=== PATIENT | female | born 1960 | race Caucasian/White ===

== ENCOUNTER 2018-01-14 02:07 | Outpatient (CLI) | payer SELFPAY ==
[2018-01-14 11:46] LABS: HEMOGLOBIN A1C 5.9 % (4.5-6.2)
[2018-01-14 12:01] LABS: CHOL/HDL RATIO 5.17 (0.00-4.99)
== END 2018-01-14 23:59 | disposition home or self-care (01) ==
LOC: HW HEART 02:07
DX: Z00.00 Encounter for general adult medical examination without abnormal findings (principal)
CPT/HCPCS: 36415

== ENCOUNTER 2025-02-17 21:53 | Inpatient (IN) | payer MEDICARE ==
[~2025-02-17] VITALS: Ht 157.5 cm; Wt 69.3 kg
[2025-02-17 22:37] LABS: BASOPHILS # (AUTO) 0.1 X10'3 (0-0.2); BASOPHILS % (AUTO) 0.6 % (0-1); EOSINOPHILS # (AUTO) 0.5 X10'3 (0-0.9); EOSINOPHILS % (AUTO) 5.1 % (0-6); HEMATOCRIT 28.5 % (35.0-45.0); LYMPHOCYTES # (AUTO) 3.2 X10'3 (1.1-4.8); MEAN CORPUSCULAR HGB CONC 35.1 g/dL (33.0-36.5); MEAN CORPUSCULAR VOLUME 82.6 FL (78-98); MEAN PLATELET VOLUME 8.4 FL (7.4-10.4); MONOCYTES # (AUTO) 0.8 X10'3 (0-0.9); MONOCYTES % (AUTO) 8.5 % (2-12); NEUTROPHILS # (AUTO) 5.3 X10'3 (1.8-7.7); NEUTROPHILS % (AUTO) 53.8 % (42-75); PLATELET COUNT 323 X10'3 (140-440); RED BLOOD COUNT 3.45 X10'6 (4.20-5.60); RED CELL DISTRIBUTION WIDTH 14.6 % (11.5-14.5); WHITE BLOOD COUNT 9.8 X10'3 (4.5-11.0)
[2025-02-17 22:47] LABS: ALANINE AMINOTRANSFERASE 21 U/L (12-78); ALBUMIN 3.8 G/DL (3.4-5.0); ALBUMIN/GLOBULIN RATIO 1.2 (1.1-1.5); ALKALINE PHOSPHATASE 110 IU/L (46-116); ANION GAP 8 (8-16); ASPARTATE AMINO TRANSFERASE 14 U/L (10-37); BILIRUBIN,TOTAL 0.4 MG/DL (0.1-1.0); BLOOD UREA NITROGEN 17 MG/DL (7-18); BUN/CREATININE RATIO 17.5 (10.0-20.0); CALCIUM 8.9 MG/DL (8.5-10.1); CHLORIDE 98 MMOL/L (99-107); CREATININE 0.97 MG/DL (0.40-0.90); GLUCOSE 137 MG/DL (70-104); POTASSIUM 3.3 MMOL/L (3.5-5.1); SODIUM 136 MMOL/L (135-145); TOTAL CARBON DIOXIDE 29.9 MMOL/L (24-32); eCRCL 46 ML/MIN; eGFR 58 ML/MIN
[2025-02-17 22:54] LABS: PRO BRAIN NATRIURETIC PEPTIDE 88 PG/ML (0-125)
[2025-02-18] VITALS (14 sets, daily range): BP systolic 97–165; BP diastolic 60–82; PULSE 74–111; RESP 14–18; TEMP 96.9–97.8; O2SAT 98–100
--- NOTE | 2025-02-18 00:42 | RADIOLOGY REPORT ---
Clinical History CP Comparison None Technique: frontal chest x-ray Without Contrast ANTONIETTA OLMSTEAD, [id number] Findings: Heart - normal lungs - no consolidation. bones - no acute fracture. Other- Impression: 1. No acute cardiopulmonary disease This report was electronically signed by Julio Odonnell MD on 02/18/2025 12:38:51 AM.
--- NOTE | 2025-02-18 01:32 | Physician Documentation ---
History of Present Illness ~ Chief Complaint: Chest Pain Stated Complaint: CHEST PAIN Time Seen by MD: 01:17 OK to notify your PCP?: Yes Source: patient, RN/MD, RN notes reviewed, old records Mode of Arrival: POV Exam Limitations: no limitations HPI 64 year old female, with a history of hypertension, hyperlipidemia, and hypothyroidism - compliant with her medications, presents complaining of diffuse chest tightness today, "like a band" around her chest. Pain is nonradiating and waxing/waning. Patient has a history of occasional chest pain related to her psoriatic arthritis, however current chest pain is dissimilar. She also reports shortness of breath since November of this year after inocencia influenza A. Shortness of breath worsens with exercise. 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 She also reports she has been told in the past that she had some findings on EKG the indicated she had had a heart attack in the past. She does not smoke. Medication Reconciliation Allergies: Coded Allergies: Sulfa (Sulfonamide Antibiotics) (Verified Allergy, Unknown, rash, 02/17/25) Past Medical History Past Medical History: *CARDIOVASCULAR*, High Cholesterol, Hypertension, Diabetes, Hypothyroidism, Arthritis Past Surgical History: hysterectomy Smoking Status: Never smoker Alcohol Use: None Drug Use: none Lives In: Home Review of Systems All Other Systems at this time: Reviewed and Negative ROS As stated above in the HPI, otherwise all systems are reviewed and negative. Physical Exam Vital Signs: RN Vital Signs have been reviewed: Yes, Temperature: 98.6, Source: Temporal, Heart Rate: 81, Respiratory Rate: 18, BP: 145/70, Pulse Oximetry: 96, Weight: 69.300 Pulse Oximetry Reflects: adequate oxygenation Physical Exam General: The patient is well developed, well nourished, nontoxic appearing and is in no acute distress. Skin: [place], warm and dry with no rashes. HEENT: Head was normocephalic and atraumatic. Chest: Clear to auscultation bilaterally without wheezes, rales or rhonchi. No accessory muscle use. No dullness to percussion. Heart: Rate regular and rhythmic. S1, S2. No murmurs. Palpation of the chest wall was normal. No rubs or thrills. Abdomen: Soft, nontender and nondistended. Positive bowel sounds. No guarding or rebound. Extremities: No cyanosis, clubbing or edema. The patient moves all extremities. Pulses were equal and symmetric. Neurologic: Motor and sensation grossly intact. Cranial nerves II-XII grossly intact. A & O x4. Psychologic: Normal mood and affect. No agitation. Progress Progress Note [id number]: Hospitalist paged [phone]: Case discussed with Dr. Siu, teleintensivist, who will evaluate the patient for admission to the hospitalist service Results/Orders Reviewed/noted all lab results: Yes Results/Orders Medications Received in ER Medications (Trade) Dose Ordered Sig/Deng Route PRN Reason Start Time Stop Time Status Last Admin Dose Admin (aspirin 81MG chew tablet) 324 mg ONCE ONCE PO 02/18/25 02:00 02/18/25 02:01 DC 02/18/25 02:30 324 MG (Nitro-Dur 0.2mg/ hour Patch) 1 patch ONCE ONCE TD 02/18/25 02:00 02/18/25 02:01 DC 02/18/25 02:31 1 PATCH (K-DUR tablet) 20 meq Q4H PRN PO Potassium 3.1-3.4 02/18/25 03:30 02/21/25 03:29 02/18/25 05:02 20 MEQ (Slow-Mag tablet) 128 mg BID PRN PO Mag 1.4 or less & can take PO 02/18/25 03:30 02/21/25 03:29 02/18/25 05:03 128 MG Vital Signs 02/17/25 02/17/25 02/17/25 02/17/25 22:00 22:08 22:22 23:00 Temp 98.6 Pulse 95 93 52 Resp 24 15 16 B/P (MAP) 102/64 (77) 121/63 Pulse Ox 91 99 98 O2 Delivery Room Air* O2 Flow Rate 0 FiO2 21 02/18/25 02/18/25 02/18/25 02/18/25 00:00 00:32 01:00 02:00 Pulse 81 81 64 77 Resp 17 18 19 18 B/P (MAP) 145/70 (95) 115/73 (87) Pulse Ox 96 02/18/25 03:00 Pulse 121 Resp 19 Laboratory Tests Test 02/17/25 22:19 02/18/25 00:20 02/18/25 01:16 White Blood Count 9.8 Red Blood Count 3.45 L Hemoglobin 10.0 L Hematocrit 28.5 L Mean Corpuscular Volume 82.6 Mean Corpuscular Hemoglobin 29.0 Mean Corpuscular Hemoglobin Concent 35.1 Red Cell Distribution Width 14.6 H Platelet Count 323 Mean Platelet Volume 8.4 Neutrophils (%) (Auto) 53.8 Lymphocytes (%) (Auto) 32.0 Monocytes (%) (Auto) 8.5 Eosinophils (%) (Auto) 5.1 Basophils (%) (Auto) 0.6 Neutrophils # (Auto) 5.3 Lymphocytes # (Auto) 3.2 Monocytes # (Auto) 0.8 Eosinophils # (Auto) 0.5 Basophils # (Auto) 0.1 CBC Comment Erythrocyte Sedimentation Rate 26 Sodium Level 136 Potassium Level 3.3 L Chloride Level 98 L Carbon Dioxide Level 29.9 Anion Gap 8 Blood Urea Nitrogen 17 Creatinine 0.97 H Estimated GFR/1.73 m2 58 BUN/Creatinine Ratio 17.5 Glucose Level 137 H Calcium Level 8.9 Magnesium Level 1.2 L Total Bilirubin 0.4 Aspartate Amino Transf (AST/SGOT) 14 Alanine Aminotransferase (ALT/SGPT) 21 Alkaline Phosphatase 110 Troponin I High Sensitivity 7 8 5 C-Reactive Protein 0.24 Pro-B-Type Natriuretic Peptide 88 Total Protein 7.0 Albumin 3.8 Globulin 3.2 Albumin/Globulin Ratio 1.2 Chemistry Comments Troponin I High Sens Percent Delta 14 37 Troponin I Hi Sens Absolute Change 1 -3 EKG/XRAY/CT/US/VASC/MRI EKG : Additional Comment 2216: EKG interpreted by me to show NSR at a rate of 88 beats per minute. Q- waves in leads II, III, and aVF. No STEMI. QTc 490ms. Chest X-Ray : Additional Comments Clinical History CP Comparison None Technique: frontal chest x-ray Without Contrast ANTONIETTA OLMSTEAD, [id number] Findings: Heart - normal lungs - no consolidation. bones - no acute fracture. Other- Impression: 1. No acute cardiopulmonary disease This report was electronically signed by Julio Odonnell MD on 02/18/2025 12:38:51 AM. Reviewed by me Heart Score: Heart Score Response (Comments) Value History Highly Suspicious 2 EKG Repolarization Disturb 1 Age >65 2 Risk Factors >3 or Hx ASHD 2 Troponin Normal limit 0 Total 7 Medical Decision Making Additional info obtained from: old records Departure Time of Disposition: 02:31 Disposition: 09 ADMITTED INPATIENT Admitted to Inpatient Unit: yes, to hospitalist Impression: Primary Impression: Unstable angina Condition: Fair Referrals: NO PRIMARY CARE PROVIDER (PCP) Signature Scribe Signature: Scribed for Topher Munson MD by Abdirashid Cortés . 02/18/25 01:58 Attestation: The note accurately reflects work and decisions made by me.Topher Munson MD 02/18/25 01:32 TOPHER MUNSON MD February 18, 2025 01:32 ABDIRASHID LEWIS February 18, 2025 02:01
[2025-02-18 01:44] LABS: MAGNESIUM 1.2 MG/DL (1.5-2.4)
[2025-02-18 02:18] LABS: C-REACTIVE PROTEIN 0.24 MG/DL (0.0-0.5)
[2025-02-18] MEDS: aspirin 81mg tab.chew PO ONE (02:30)
[2025-02-18] MEDS: nitroGLYCERIN 0.2mg/hour patch TD ONE (02:31)
--- NOTE | 2025-02-18 03:28 | HISTORY AND PHYSICAL ---
History & Physical - Short Providers to CC Admitted with concerns for unstable angina chest pain pending cardiology evaluation~ History of Present Illness Chief Complain & History 64-year-old with chest tightness concerning for cardiac cause. Has had previous history of stress testing prior to be negative. No official cardiology follow-ups. Has history of hypertension and psoriatic arthritis. Laboratory data and radiological investigations reviewed ------- History limited from chart and communication with ED physician Allergies: Coded Allergies: Sulfa (Sulfonamide Antibiotics) (Verified Allergy, Unknown, rash, 02/17/25) Past Medical History Past Medical History Hypertension arthritis questionable psoriasis Exam Last recorded Lab results: 02/17/25221802/17/252218 Vitals: Vital Signs Date Time Temp Pulse Resp B/P (MAP) Pulse Ox O2 Delivery O2 Flow Rate FiO2 02/18/25 00:32 81 18 145/70 (95) 96 02/17/25 22:22 Room Air* 0 21 02/17/25 22:08 98.6 Advance Care Planning Advanced Care planning: N/A Problem\Assessment\Plan Additional Plan Impression 1. Unstable angina 2. Hypokalemia 3. Anemia of chronic disease 4. Arthritis 5. Psoriasis Plan Continue the current medications Aspirin, statins Anemia workup Cardiology evaluation VICKEY DANIELLE MD February 18, 2025 03:28
[2025-02-18] MEDS ORDERED: mag hydrox/Alum hydrox/simeth 30ml oral suspension PO PRN (03:30)
[2025-02-18] MEDS ORDERED: magnesium sulf-water 4G/100mL 100 ML IV PRN (03:30)
[2025-02-18] MEDS ORDERED: potassium Cl 20 mEq SR tablet PO PRN (03:30)
[2025-02-18] MEDS ORDERED: potassium Cl 40MEQ/1/2NS 520ml 520 ML IV PRN (03:30)
[2025-02-18] MEDS ORDERED: magnesium sulf-water 2g/50mL 50 ML IV PRN (03:30)
[2025-02-18] MEDS ORDERED: acetaminophen 325mg tablet PO PRN (03:30)
[2025-02-18] MEDS ORDERED: ondansetron/PF 4mg/2ml inj IV PRN (03:30)
[2025-02-18] MEDS ORDERED: magnesium hydroxide 30ml (MOM) UD suspension PO PRN (03:30)
[2025-02-18] MEDS ORDERED: KEN0.1O TP (03:49)
[2025-02-18] MEDS ORDERED: ROSU20TA98 PO ×2 (03:49→07:58)
[2025-02-18] MEDS ORDERED: METF-900 PO ×3 (03:50→08:01)
[2025-02-18] MEDS ORDERED: NAPAOS RIGHTEYE (03:54)
[2025-02-18] MEDS ORDERED: NAPAOS LEFTEYE (03:54)
[2025-02-18] MEDS ORDERED: CYCL-1 PO (03:55)
[2025-02-18] MEDS ORDERED: FLUT9.9S BOTHNARES (03:56)
[2025-02-18] MEDS ORDERED: LOSA-415 PO ×2 (03:59→07:52)
[2025-02-18] MEDS ORDERED: PANT-47 PO (03:59)
[2025-02-18] MEDS ORDERED: CITA-178 PO (04:01)
[2025-02-18] MEDS ORDERED: BUDE10.22 INH (04:02)
[2025-02-18] MEDS ORDERED: ACYC-129 PO (04:05)
[2025-02-18] MEDS ORDERED: HYDR25TA4 PO (04:05)
[2025-02-18] MEDS ORDERED: ACYC-127 PO (04:05)
[2025-02-18] MEDS ORDERED: BENZ200C53 PO (04:05)
[2025-02-18] MEDS ORDERED: METO-384 PO ×2 (04:06→07:58)
[2025-02-18] MEDS ORDERED: LEVO100T PO (04:07)
[2025-02-18] MEDS ORDERED: FLUT1DIS20 INH (04:07)
[2025-02-18] MEDS ORDERED: ALB0.5UD NEB (04:08)
[2025-02-18] MEDS: potassium Cl 20 mEq SR tablet PO PRN (05:02)
[2025-02-18] MEDS: magnesium Cl slow-release 64mg tablet PO PRN (05:03)
--- NOTE | 2025-02-18 05:12 | ELECTROCARDIOGRAPH REPORT ---
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 Lars Cheney Measurements Intervals [place] Rate: 88 P: -9 GA: 150 QRS: -31 QRSD: 88 T: 21 QT: 405 QTc: 490 Interpretive Statements Sinus rhythm Inferior infarct, old Anterior infarct, old Electronically Signed On 02-18-2025 20:40:[address] Lars Cheney Please click the below link to view image of tracing.
[2025-02-18 07:45] LABS: MAGNESIUM 1.4 MG/DL (1.5-2.4); POTASSIUM 3.3 MMOL/L (3.5-5.1)
[2025-02-18] MEDS ORDERED: CYCL-920 PO (07:47)
[2025-02-18] MEDS ORDERED: CITA40TA30 PO (07:47)
[2025-02-18] MEDS ORDERED: FLUT1BLS7 INH (07:47)
[2025-02-18] MEDS ORDERED: FLUT16SP26 (07:47)
[2025-02-18] MEDS ORDERED: HYDR25TA5 PO (07:50)
[2025-02-18] MEDS ORDERED: SYN0.088T PO (07:50)
[2025-02-18] MEDS ORDERED: LOSA25TA41 PO (07:52)
[2025-02-18] MEDS ORDERED: PANT40TA54 PO (07:58)
[2025-02-18] MEDS ORDERED: CERT400S SUBCUT (07:58)
[2025-02-18] MEDS ORDERED: KEN0.1O (07:58)
[2025-02-18] MEDS: K and/or MAG REPLACEMENT MC SCH (08:00)
[2025-02-18] MEDS: docusate sod 100mg capsule PO SCH (08:00)
[2025-02-18] MEDS ORDERED: CETI10CA PO (08:00)
[2025-02-18] MEDS ORDERED: metoprolol tartrate 1mg/ml inj IV PRN (08:45)
[2025-02-18] MEDS ORDERED: aminophylline 250mg/10ml inj. IV PRN (08:45)
[2025-02-18] MEDS ORDERED: nitroGLYCERIN 0.4mg SUBLingual tab SL PRN (08:45)
[2025-02-18 09:14] LABS: CHOL/HDL RATIO 4.2 (0.00-4.99); CHOLESTEROL 158 MG/DL (0-200); HDL CHOLESTEROL 38 MG/DL (35-60); LDL CHOLESTEROL 79 MG/DL (50-100); THYROID STIMULATING HORMONE 4.25 ulU/ml (0.34-4.50); TRIGLYCERIDES 228 MG/DL (20-135)
[2025-02-18] MEDS ORDERED: aminophylline 500mg/20ml vial ONE (10:13)
[2025-02-18] MEDS: regadenoson 0.4mg/5ml syringe IV PRN (11:10)
[2025-02-18] MEDS ORDERED: aminophylline 500mg/20ml vial IV PRN (11:49)
--- NOTE | 2025-02-18 15:35 | RADIOLOGY REPORT ---
Procedure: NM NM SEMAJ SCAN Exam Date: 02/18/2025 10:32 AM Reason for study/Clinical History: chest pain Comparison Study: None available at time of dictation. Myocardial Perfusion Study with SPECT Technique: The patient received an intravenous injection of 8 mCi of technetium-99m sestamibi while at rest. After a short delay, SPECT tomographic images of the heart were obtained. The patient then went to the stress lab where they received an intravenous Lexiscan utilizing standard protocol. 31 mCi of technetium-99m sestamibi was injected intravenously immediately after the start of the infus ion. Gated SPECT tomographic images of the heart were acquired and processed. Findings: Rotating planar images show no significant attenuation artifact. The left ventricular size is within normal limits. Stress tomographic images demonstrate normal perfusion. Resting tomographic images demonstrate a similar pattern. Gated portion of the study shows normal wall motion and myocardial thickening. The left ventricular ejection fraction is 75%. (normal greater than 50%) Impression: Normal left ventricular size, wall motion, and function, without evidence of infarction or of myocard ium at ischemic risk. The left ventricular ejection fraction is 75%.
--- NOTE | 2025-02-18 18:33 | CARDIOLOGY REPORT ---
APPROVED REPORT EXAM: Comprehensive 2D, Doppler, and color-flow Echocardiogram. 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 128.1 cm/s AoV VTI 26.8 cm AO Peak GR. 6.6 mmHg AO Mean GR. 3 mmHg LVOT VTI 21.39 cm LVOT Peak Isidro. 115.0 cm/s MARY GRACE(VTI)/BSA 2.08 cm2/m2 MARY GRACE (VTI) 2.08 cm2 AI P 1/2 Time 724 ms Mitral Valve MV E Velocity 62.3 cm/s MV Peak Gr. 4 mmHg MV DECEL TIME 224 ms MV A Velocity 99.9 cm/s MV PHT 76 ms E/A Ratio 0.6 MVA (PHT) 2.89 cm2 MV RRru664.8 cm/s TDI Lateral E' P. V8.87 cm/s E/Lateral E' 7.0 Pulmonary Valve PAEDP12.80 mmHg Tricuspid Valve TR P. Velocity 229 cm/s RAP ESTIMATE 10 mmHg TR Peak Gr. 21 mmHg RVSP 31 mmHg LEFT VENTRICLE Normal LV size and wall thickness. Overall systolic function is normal. LVEF is 70%. RIGHT VENTRICLE Right ventricle is mildly dilated with normal function. ATRIA The left atrium size is normal. AORTIC VALVE Trileaflet AV appears mildly sclerotic without stenosis. Mild insufficiency. MITRAL VALVE Mild mitral annular calcification without stenosis. Trace regurgitation. TRICUSPID VALVE The tricuspid valve is normal in structure with trace regurgitation. PULMONIC VALVE The pulmonary valve is normal in structure with trace insufficiency. GREAT VESSELS The aortic root is normal in size. The ascending aorta is normal in size. The IVC is normal in size a nd collapses >50% with inspiration. PERICARDIUM Normal pericardium. No effusion. Other Information Study Quality: Adequate Conclusion Normal LV size and wall thickness. Overall systolic function is normal. LVEF is 70%. Right ventricle is mildly dilated with normal function. The left atrium size is normal. Trileaflet AV appears mildly sclerotic without stenosis. Mild insufficiency. Mild mitral annular calcification without stenosis. Trace regurgitation. The tricuspid valve is normal in structure with trace regurgitation. Normal pericardium. No effusion.
--- NOTE | 2025-02-18 18:46 | DISCHARGE SUMMARY-Residence ---
Discharge Summary Providers to CC Resident Creating Document: YUE BRANDON RES ~ Discharge Summary Admission Diagnosis: unstable angina Hospital Course DATE OF ADMISSION: DATE OF DISCHARGE: Hospital course: 64 year old female, with a history of hypertension, hyperlipidemia, and hypothyroidism - compliant with her medications, presents complaining of diffuse chest tightness today, "like a band" around her chest. Pain is nonradiating and waxing/waning. Patient has a history of occasional chest pain related to her psoriatic arthritis, however current chest pain is dissimilar. She also reports shortness of breath since November of this year after inocencia influenza A. Shortness of breath worsens with exercise. Patient admitted with following workup and diagnosis treatment Chest pain Unknown etiology EKG interpreted by me to show NSR at a rate of 88 beats per minute. Q-waves in leads II, III, and aVF. No STEMI. QTc 490ms. Chest x-ray: No acute cardiopulmonary disease Serial troponin negative, proBNP normal, TSH normal NM SEMAJ SCAN: Normal left ventricular size, wall motion, and function, without evidence of infarction or of myocardium at ischemic risk.The left ventricular ejection fraction is 75%. Echocardiography: Normal LV size and wall thickness. Overall systolic function is normal. LVEF is 70%. Right ventricle is mildly dilated with normal function.The left atrium size is normal. Trileaflet AV appears mildly sclerotic without stenosis. Mild insufficiency. Mild mitral annular calcification without stenosis. Trace regurgitation.The tricuspid valve is normal in structure with trace regurgitation. The pulmonary valve is normal in structure with trace insufficiency. The aortic root is normal in size. The ascending aorta is normal in size. The IVC is normal in size and collapses >50% with inspiration. Normal pericardium. No effusion. Other comorbidities: Dyslipidemia, hypertension, psoriatic arthritis Patient received home medication without any changes Labs: WBC 9.8, hemoglobin 10, hematocrit 28, platelets 323, sodium 136, potassium 3.3, BUN 17, creatinine 0.97, triglycerides 228, LDL 79, cholesterol 158, TSH 4.25 Physical exam on discharge day General: Awake and Alert, no acute distress. HEENT: Conjunctiva pink, Sclera clear, Mucus Membranes moist. Neck: Supple without masses and tenderness. Resp: Lungs clear to auscultation bilaterally. Heart: Regular Rate and rhythm, normal S1 and S2 Abdomen: Soft and non tender no organomegaly Extremities: No cyanosis,clubbing or edema. Skin: Warm and Dry, psoriatic plaque on the back and under left breast Neurological: Speech is clear, alert, and oriented x 4, no gross neurological deficits Patient discharged home in a stable situation with following instruction: Follow-up with primary care physician after hospital discharge. Activity as tolerated. Follow up with Cardiology for continuity of the care Discharge Diagnosis\\Comment: Atypical chest pain, unknown etiology Hypertension Dyslipidemia psoriatic arthritis Operations\\Procedures: Procedure: NM NM SEMAJ SCAN Exam Date: 02/18/2025 10:32 AM Consultants: none Complications: none Condition on DC: Stable Continued Medications: Certolizumab Pegol (Cimzia) 400 Mg/2 Ml (200 Mg/Ml X 2) Syringekit 1 ML SUBCUT UD for 30 Days, #3 KIT 0 Refills Cetirizine Hcl (Zyrtec) 10 Mg Capsule 1 CAP PO DAILY for allergy symptoms for 30 Days, #30 CAP 0 Refills Citalopram Hydrobromide (Citalopram HBr) 40 Mg Tablet 1 TAB PO DAILY Cyclobenzaprine HCl (Cyclobenzaprine HCl) 5 Mg Tablet 1 TAB PO PRN Fluticasone Propionate (Fluticasone Propionate) 50 Mcg/Actuation [place].susp DAILY Fluticasone/Salmeterol (Advair 250-50 Diskus) 1 Puff Inh 1 PUFFS INH Q12H for 30 Days, #1 EA 0 Refills Hydrochlorothiazide (Hydrochlorothiazide) 25 Mg Tab 1 TAB PO DAILY Levothyroxine Sodium* (Synthroid*) 88 Mcg Tablet 1 TAB PO DAILY for 30 Days, #30 TAB Losartan Potassium (Losartan Potassium) 25 Mg Tablet 1 TAB PO DAILY for 30 Days, #30 TAB 0 Refills Metformin Hcl* (Metformin ER*) 500 Mg Tab.sr.24h 1 TAB PO Q12H for 30 Days, #60 TAB Metoprolol Succinate (Metoprolol Succinate) 50 Mg Tab.sr.24h 1 TAB PO DAILY Pantoprazole Sodium (Pantoprazole Sodium) 40 Mg Tablet.dr 1 TAB PO DAILY Rosuvastatin Calcium (Rosuvastatin Calcium) 20 Mg Tablet 1 TAB PO HS Triamcinolone Acetonide 0.1% Crm* (Kenalog 0.1% Crm*) 1 Applic Tube Discontinued Medications: Losartan Potassium* (Cozaar*) 25 Mg Tablet 1 TAB PO DAILY for 30 Days, #30 TAB Discharge Summary: See hospital course *Problems/Diagnosis: (1) Chest pain Total Time Spent on D/C: > 30 Minutes Date of Service: February 18, 2025 Billing Provider: MARYANN GARCIA MD Common Visit Codes: 50453-DFH/OBS DISCH DAY >30min YUE BRANDON, JES February 18, 2025 18:44 MARYANN GARCIA MD February 19, 2025 19:26
== END 2025-02-18 17:41 | disposition home or self-care (01) | DRG 313 ==
LOC: ER 21:53 → ED HOLD 02-18 03:31 → PCU 3S 02-18 05:10
PROVIDERS: ADMIT Internal Medicine Critical Care Medicine; ATTEND Internal Medicine
PROC: 4A02XM4 Measurement of Cardiac Total Activity, External Approach (ICD-10-PCS; principal; 2025-02-18)
PROC: 3E033HZ Introduction of Radioactive Substance into Peripheral Vein, Percutaneous Approach (ICD-10-PCS; 2025-02-18)
DX: R07.89 Other chest pain (principal); I25.110 Atherosclerotic heart disease of native coronary artery with unstable angina pectoris; E78.00 Pure hypercholesterolemia, unspecified; I10 Essential (primary) hypertension; L40.50 Arthropathic psoriasis, unspecified; E87.6 Hypokalemia; D63.8 Anemia in other chronic diseases classified elsewhere; E11.9 Type 2 diabetes mellitus without complications; E03.9 Hypothyroidism, unspecified; Z88.2 Allergy status to sulfonamides; Z90.710 Acquired absence of both cervix and uterus
CPT/HCPCS: 36415; 71045; 78452; 80053; 80061; 83735; 83880; 84132; 84443; 84484; 85025; 85651; 86140; 87081; 93005; 93017; 93306; 96374; 99285; A9500; G0378; J0280; J2785